=== PATIENT | female | born 1990 | race African-American/Black ===

== ENCOUNTER 2023-11-20 16:02 | Emergency (ER) | payer SELFPAY ==
[~2023-11-20] VITALS: Ht 165.1 cm; Wt 64.8 kg
[2023-11-20 16:14] VITALS: O2SAT 99
[2023-11-20] MEDS: LIDOCAINE HCL/PF 1% 10 MG/ML 5ML VIAL INFIL ONE (17:52)
[2023-11-20] MEDS: BACITRACIN ZINC OINT UDPKT TOP ONE (17:52)
[2023-11-20] MEDS: TETANUS, DIPHTHERIA, PERTUSSIS VAC/PF 0.5ML (>10YR OLD) IM ONE (17:53)
[2023-11-20] MEDS ORDERED: ERYT1OIN6 EACHEYE (18:42)
[2023-11-20] MEDS: TETRACAINE 0.5% OPHTH DROPS 4ML RIGHTEYE ONE (19:22)
[2023-11-20] MEDS: FLUORESCEIN SODIUM 1MG/STRIP RIGHTEYE ONE (19:22)
[2023-11-20 19:23] VITALS: BP 118/67; PULSE 100; RESP 16; TEMP 36.78072; O2SAT 99
== END 2023-11-20 19:26 | disposition home or self-care (01) ==
LOC: ER 16:02
DX: T26.91XA Corrosion of right eye and adnexa, part unspecified, initial encounter (principal); Y93.89 Activity, other specified; Y92.89 Other specified places as the place of occurrence of the external cause; Y99.8 Other external cause status
CPT/HCPCS: 99283